=== PATIENT | female | born 1945 | race Caucasian/White ===

== ENCOUNTER → 2024-06-09 11:10 | Outpatient (REF) | payer OTHER, SELFPAY | LOC: RAD 11:10 | PROVIDERS: ATTENDING PHYSICIAN Internal Medicine Critical Care Medicine; FAMILY PHYSICIAN Nurse Practitioner | DX: R91.8 Other nonspecific abnormal finding of lung field (principal) | CPT/HCPCS: 71250 ==

== ENCOUNTER 2024-12-17 18:09 | Emergency (ER) | payer OTHER, SELFPAY ==
[2024-12-17 18:27] VITALS: BMI 31.7
[2024-12-17 18:38] VITALS: BP 135/72
[2024-12-17 18:50] LABS: % Basophils 1.9 % (0-2); % Eosinophils 2.1 % (0-6); % Immature Granulocytes 0.5 % (0-0.5); % Lymphocytes 27.4 % (20.5-51.1); % Neutrophils 59.1 % (42.2-75.2); Absolute Basophils 0.1 10^3/uL (0-0.2); Absolute Eosinophils 0.1 10^3/uL (0-0.7); Absolute Lymphocytes 1.2 10^3/uL (1.2-3.4); Absolute Monocytes 0.4 10^3/uL (0.1-0.6); Absolute Neutrophils 2.5 10^3/uL (1.4-6.5); Hematocrit 37.8 % (37.0-47.0); Hemoglobin 12.8 g/dL (12.0-16.0); Mean Corp Hgb Conc. 33.9 g/dL (33.0-37.0); Mean Corpuscular Hgb 29.6 pg (27.0-31.0); Mean Corpuscular Volume 87.5 fL (81.0-99.0); Mean Platelet Volume 9.5 fL (7.4-10.4); Nucleated Red Blood Cells % 0 %; Platelet Count 168 10^3/uL (130-400); Red Blood Cell Count 4.32 10^6/uL (4.20-5.40); Red Cell Dist. Width 13.1 % (11.5-14.5); White Blood Cell Count 4.2 10^3/uL (4.8-10.8)
--- NOTE | 2024-12-17 18:53 | ED.GENMED ---
History of Present Illness
General
Chief Complaint: Heart Rate Problem
Time Seen by Provider: 12/17/24 18:34
History of Present Illness
History of Present Illness:
Patient presents to the emergency department with episode of palpitations that is now resolved. She has had multiple episodes over the past few weeks. She notes feeling anxiety and feeling that her heart is racing. Her Apple Watch was telling her
she may be in atrial fibrillation. Symptoms are now resolved. No chest pain or shortness of breath. No leg swelling.
Phy Exam
Physical Exam
Physical Exam:
GENERAL APPEARANCE: NAD, well developed/ well nourished
EYES lids/conjunctiva normal
EARS/NOSE/THROAT Mucous membranes moist, uvula midline without oral pharyngeal erythema, exudate or swelling
HEAD/NECK normocephalic atraumatic, neck is supple.
RESPIRATORY respiratory effort normal, speaks in full sentences, no accessory muscle use. Lungs clear to auscultation without rhonchi, wheezes, rales
CARDIAC Regular rate and rhythm, no edema.
ABDOMINAL Soft, ND/NT. No pulsatile masses on exam, rebound tenderness, Novak sign or pain over Mcburney's point.
MUSCLES/EXTREMITIES No abnormal range of motion, no swelling.
SKIN Warm, pink and dry. No rashes
NEUROLOGICAL Speech is clear and appropriate. Normal level of consciousness. 5/5 strength in all extremities.
PSYCH Normal mood and affect. Judgement/competence is appropriate
Course
Orders/Labs/Results
Orders:
Orders
12/17/24 18:10
Electrocardiogram (*1) Urgent
Reason for Study: Atrial Fibrillation
EKG- Treatment ONCE
12/17/24 18:35
Complete Blood Count/With Diff Urgent
Comprehensive Metabolic Panel Urgent
12/17/24 19:02
Troponin I Urgent
Abnormal Lab Results
12/17/24
18:35
WBC 4.2 L 10^3/uL
(4.8-10.8)
BUN 23 H mg/dl
(7-17)
Glucose 135 H mg/dl
(70-99)
12/17/24 18:35
12/17/24 18:35
Vital Signs
Initial and Last Documented VS:
Initial Vital Signs
BP
135/72
12/17/24 18:38
Last Documented Vital Signs
Pulse Resp BP Pulse Ox
77 16 136/68 97
12/17/24 20:00 12/17/24 20:00 12/17/24 20:00 12/17/24 20:00
*Critical Care Note
Total Time (30-74mins, 75-104mins- exclusive of procedures): Not Applicable
ED Attending Note
ED Attending Note
ED Attending Note:
Patient with known history of atrial fibrillation presents with palpitations concerning for breakthrough episodes. She is anticoagulated on Eliquis and endorses compliance with this. She is currently in sinus rhythm and is hemodynamically stable
and asymptomatic. Will check basic labs and plan for close cardiology follow-up for outpatient telemetry and further management
-
Portions of this chart may have been created with voice recognition software.� Occasional wrong word or��sound alike� substitutions may have occurred due to the inherent limitations of voice recognition software.
Discharge Plan
Departure
Patient Disposition: Home (Routine Discharge)
Date of Disposition: 12/17/24
Time of Disposition: 20:06
Patient with high blood pressure during this ER visit?: No
Discharge Problem:
Heart palpitations
Referrals:
Diamond Black CRNP [Family Provider] -
Activity Restrictions/Additional Instructions:
Please follow-up tomorrow with your sales driver to discuss outpatient monitoring
discuss your new inhaler with your pulmonlogist. This may be contributing to your fast heart rate.
Interventions
Interventions:
*Risk Screen - Suicide Last Done: 12/17/24 18:17
*General Assessment Last Done: 12/17/24 18:17
*Neglect/Abuse Screening Last Done: 12/17/24 18:17
*ED- Fall Risk Assessment Last Done: 12/17/24 20:34
*ED COVID-19 Vaccine History Last Done: 12/17/24 18:17
*Nursing Disposition Last Done: 12/17/24 20:34
ED- Cardiac Assessment Last Done: 12/17/24 18:45
ED- Pulmonary Assessment Last Done: 12/17/24 18:45
Discharge Date and Time
Discharge Date/Time: 12/17/24 20:35
Print Language: ICELANDIC
[2024-12-17 19:00] VITALS: BP 135/74
[2024-12-17 19:15] LABS: ALT (SGPT) 16 U/L (0-35); AST (SGOT) 26 U/L (14-36); Albumin 4.4 g/dl (3.5-5.0); Alkaline Phosphatase 96 U/L (38-126); Blood Urea Nitrogen 23 mg/dl (7-17); Calcium 9.8 mg/dl (8.4-10.2); Carbon Dioxide 27 mmol/L (22-30); Chloride 103 mmol/L (98-107); Estimated Creatinine Clearance 54 ml/min; Glucose 135 mg/dl (70-99); Potassium 3.5 mmol/L (3.5-5.1); Sodium 141 mmol/L (135-145); Total Bilirubin 0.6 mg/dl (0.2-1.3); Total Protein 7.4 g/dl (6.3-8.2); eGFR > 60.00
--- NOTE | 2024-12-17 19:15 | EDRN ---
Report received introduced myself to patient who has family at bedside. while talking with patient and family, patient did have a run of sinus tachycardia, printed strip which was scanned into chart as well as showed the Doctor.
[2024-12-17 19:30] LABS: Troponin I < 0.012 ng/ml
[2024-12-17 20:00] VITALS: BP 136/68
--- NOTE | 2024-12-17 20:00 | EDRN ---
Patient was complaining of a 'banding feeling' above eyes, informed Doctor who did go back in to talk to patient and family, they were also updated on labs.
== END 2024-12-17 20:35 | disposition home or self-care (01) ==
LOC: EMR 18:09
PROVIDERS: EMERGENCY PHYSICIAN Emergency Medicine; FAMILY PHYSICIAN Nurse Practitioner
DX: R00.2 Palpitations (principal); I48.91 Unspecified atrial fibrillation
CPT/HCPCS: 99284; 80053; 84484; 85025; 93005

== ENCOUNTER → 2025-01-19 14:43 | Outpatient (REF) | payer OTHER, SELFPAY | LOC: WDC 14:43 | PROVIDERS: ATTENDING PHYSICIAN Nurse Practitioner | DX: Z12.31 Encounter for screening mammogram for malignant neoplasm of breast (principal) | CPT/HCPCS: 77063; 77067 ==

== ENCOUNTER → 2025-02-05 10:17 | Outpatient (REF) | payer OTHER, SELFPAY | LOC: WDC 10:17 | PROVIDERS: ATTENDING PHYSICIAN Nurse Practitioner | DX: R92.8 Other abnormal and inconclusive findings on diagnostic imaging of breast (principal) | CPT/HCPCS: 76642 ==

== ENCOUNTER → 2025-06-12 07:52 | Outpatient (REF) | payer OTHER, SELFPAY | LOC: PET 07:52 | PROVIDERS: ATTENDING PHYSICIAN Student in an Organized Health Care Education/Training Program | DX: R06.09 Other forms of dyspnea (principal) | CPT/HCPCS: 78431; A9555; J2785 ==

== ENCOUNTER → 2025-09-01 10:04 | Outpatient (REF) | payer OTHER, SELFPAY | LOC: RAD 10:04 | PROVIDERS: ATTENDING PHYSICIAN Nurse Practitioner Adult Health; FAMILY PHYSICIAN Nurse Practitioner | DX: R91.8 Other nonspecific abnormal finding of lung field (principal) | CPT/HCPCS: 71250 ==